=== PATIENT | male | born 1945 | race Caucasian/White ===

== ENCOUNTER 2021-08-07 17:19 | Inpatient (IN) ==
[~2021-08-07 17:19] MED LIST: *HR* Etomidate 40 MG/20 ML VIAL IVP ONE; *HR* Rocuronium Bromide 50 MG/5 ML VIAL IVP ONE
[2021-08-07] MEDS ORDERED: Aspirin 325 MG TABLET PO ONE (17:36)
[2021-08-07] MEDS ORDERED: 0.9 % Sodium Chloride 1,000 ML IVC ONE (17:36)
[2021-08-07 18:30] LABS: Basophils # 0.1 K/mcL (0.0-0.2); Basophils % 0.6 %; Hematocrit 34.6 % (37.5-50.1); Hemoglobin 11.2 g/dL (12.9-16.9); Immature Granulocytes % 3.1 % (0-4); Lymphocytes # 0.4 K/mcL (0.6-4.6); Mean Corpuscular HGB Conc 32.4 g/dL (31.6-35.5); Mean Corpuscular Hemoglobin 30.6 pg (28.0-33.3); Mean Corpuscular Volume 94.5 fL (83.0-100.0); Mean Platelet Volume 11.3 fL (9.4-12.4); Monocytes # 0.9 K/mcL (0.0-1.3); Monocytes % 6.5 %; Neutrophils # 12.1 K/mcL (1.6-8.9); Nucleated Red Blood Cells 0.4 /100 WBC (0); Platelet Count 222 K/mcL (140-400); Red Blood Count 3.66 M/mcL (4.19-5.50); Red Cell Distribution Width 15.3 % (11.5-14.5); Segmented Neutrophils % 86.8 %
[2021-08-07] MEDS ORDERED: cefTRIAXone 1,000 MG in 0.9 % Sodium Chloride Mini Bag 100 ML IVPB ONE (18:36)
[2021-08-07 18:38] LABS: INR 1.3; Prothrombin Time 14.2 Seconds (9.4-12.1)
[2021-08-07 18:40] LABS: Activated Partial Thrombo Time 24.7 Seconds (26.0-36.0)
[2021-08-07 18:53] LABS: BUN/Creatinine Ratio 35 (6-26); Blood Urea Nitrogen 45 mg/dL (8-23); Calcium 8.6 mg/dL (8.6-10.3); Carbon Dioxide 30 mEq/L (23-29); Chloride 97 mEq/L (98-107); Glucose 315 mg/dL (70-105); Osmolality,Calculated 304 (280-300); Potassium 4.9 mEq/L (3.5-5.1); Sodium 135 mEq/L (136-145); eGFR For African Americans > 60 (> 60); eGFR For Non-African Americans 54 (> 60)
[2021-08-07 19:03] LABS: Troponin I 0.06 ng/mL (< 0.04)
[2021-08-07 19:07] LABS: Thyroid Stimulating Hormone 0.957 mcIU/mL (0.340-5.600)
[2021-08-07] MEDS ORDERED: DilTIAZem 50 MG/50 ML IV.SOLN IVC SCH (19:30)
[2021-08-07] MEDS ORDERED: Isovue-370 500 ML BOTTLE IVP ONE (19:35)
[2021-08-07 19:47] LABS: Adenovirus Not Detected (Not Detect); Coronavirus 229E Not Detected (Not Detect); Coronavirus HKU1 Not Detected (Not Detect); Coronavirus NL63 Not Detected (Not Detect); Coronavirus OC43 Not Detected (Not Detect); Human Metapneumovirus Not Detected (Not Detect); Human Rhinovirus/Enterovirus Not Detected (Not Detect); Influenza A Subtype 2009 H1 Not Detected (Not Detect); SARS-CoV-2 Not Detected (Not Detect)
[2021-08-07 19:48] LABS: Bordetella Pertussis Not Detected (Not Detect); Chlamydophila pneumoniae Not Detected (Not Detect); Influenza B Not Detected (Not Detect); Mycoplasma pneumoniae Not Detected (Not Detect); Parainfluenza Virus 1 Not Detected (Not Detect); Parainfluenza Virus 2 Not Detected (Not Detect); Parainfluenza Virus 3 Not Detected (Not Detect); Parainfluenza Virus 4 Not Detected (Not Detect); Respiratory Syncytial Virus Not Detected (Not Detect)
[2021-08-07 21:12] LABS: Bilirubin,Urine Negative (Negative); Blood,Urine Negative (Negative); Clarity,Urine Clear (Clear); Color,Urine Yellow (Yellow); Glucose,Urine (UA) 50 mg/dL (Normal); Hyaline Casts,Urine Few per lpf (None Seen); Ketones,Urine Trace mg/dL (Negative); Leukocyte Esterase,Urine Negative (Negative); Mucus,Urine Few per lpf (None-Few); Nitrite,Urine Negative (Negative); Protein,Urine 30 mg/dL (Neg-Trace); RBC,Urine 0-3 per hpf (0-3); Specific Gravity,Urine > 1.030 (1.010-1.025); Squamous Epithelial Cell,Urine Few per hpf (None-Few)
[2021-08-07] MEDS ORDERED: *HR* Heparin 5,000 UNIT/ML VIAL IVP ONE (21:50)
[2021-08-07] MEDS ORDERED: *HR* Heparin 5,000 UNIT/ML VIAL IVP PRN ×2 (21:50)
[2021-08-07] MEDS ORDERED: Azithromycin 500 MG in 0.9 % Sodium Chloride 250 ML IVPB ONE (21:54)
[2021-08-07] MEDS: Heparin 25,000UNIT/250ML 1/2NS 25,000 UNIT/250 ML IV.SOLN IVC SCH (22:00)
[2021-08-07] MEDS ORDERED: *HR* Metoprolol 5 MG/5 ML VIAL IVP ONE (22:09)
[2021-08-07 23:17] LABS: Hematocrit 32.9 % (37.5-50.1); Hemoglobin 10.7 g/dL (12.9-16.9); Mean Corpuscular HGB Conc 32.5 g/dL (31.6-35.5); Mean Corpuscular Hemoglobin 31.4 pg (28.0-33.3); Mean Corpuscular Volume 96.5 fL (83.0-100.0); Mean Platelet Volume 11.8 fL (9.4-12.4); Platelet Count 211 K/mcL (140-400); Red Blood Count 3.41 M/mcL (4.19-5.50); Red Cell Distribution Width 15.4 % (11.5-14.5); White Blood Count 12.5 K/mcL (4.3-11.1)
[2021-08-07] MEDS ORDERED: *HR* LORazepam 2 MG/ML VIAL ONE (23:17)
[2021-08-07 23:26] LABS: Heparin anti-factor XA UFH < 0.04 IU/mL (0.30-0.70)
[2021-08-07 23:27] LABS: INR 1.2; Prothrombin Time 13.6 Seconds (9.4-12.1)
[2021-08-07] MEDS ORDERED: 0.9 % Sodium Chloride 1,000 ML ONE (23:53)
[2021-08-08] MEDS: FentaNYL (PF) 1,000 MCG/100 ML IV.SOLN IVC SCH ×2 (00:05→17:26)
[2021-08-08] MEDS ORDERED: Naloxone 0.4 MG/ML INJ IVP PRN (00:05)
[2021-08-08] MEDS ORDERED: Amiodarone Premix 150 MG/100 ML BAG IVPB ONE (00:05)
[2021-08-08] MEDS ORDERED: 0.9 % Sodium Chloride 1,000 ML IVC ONE (00:06)
[2021-08-08] MEDS ORDERED: Dexamethasone Sodium Phos/PF 10 MG/ML VIAL IVP ONE (00:15)
[2021-08-08] MEDS ORDERED: Amiodarone Premix 360 MG/200 ML BAG IVC ONE (00:15)
[2021-08-08] MEDS ORDERED: Racepinephrine Neb 0.5 ML VIAL IH ONE (00:20)
[2021-08-08] MEDS ORDERED: Ondansetron ODT 4 MG TAB.RAPDIS SL PRN (00:21)
[2021-08-08 01:02] LABS: ABG Base Excess -4 mEq/L (-2 to 3); ABG HCO3 22 mEq/L (21-27); ABG Oxygen Saturation 94 % (95-98); ABG PCO2 43 mmHg (35-45); ABG PH 7.33 pH Units (7.32-7.45); ABG PO2 76 mmHg (85-104); ABG TCO2 24 mEq/L (20-26); Blood Gas VT 500 cc
[2021-08-08] MEDS ORDERED: Artificial Tears SOLN 15 ML BOTTLE BOTH EYES PRN (01:23)
[2021-08-08] MEDS ORDERED: D5% in Water 1,000 ML IVC PRN (01:25)
[2021-08-08] MEDS ORDERED: *HR* Dextrose 50 % in Water (Syg) 50 ML SYRINGE IVP PRN (01:25)
[2021-08-08] MEDS ORDERED: Dextrose 4 GM Chewable Tablets PO PRN ×2 (01:25)
[2021-08-08] MEDS ORDERED: Benzonatate 100 MG CAPSULE PO PRN (02:49)
[2021-08-08] MEDS ORDERED: Perflutren Lipid Microsphere 1.3 ML in 0.9 % Sodium Chloride 8.7 ML IVP PRN (02:49)
[2021-08-08] MEDS ORDERED: Vancomycin 1,250 MG/262.5 ML IV.SOLN IVPB ONE (03:00)
[2021-08-08 03:32] LABS: Bacteria,Urine Few per hpf (None-Few); Bilirubin,Urine Negative (Negative); Blood,Urine Negative (Negative); Clarity,Urine Clear (Clear); Color,Urine Yellow (Yellow); Glucose,Urine (UA) Normal (Normal); Hyaline Casts,Urine Few per lpf (None Seen); Ketones,Urine Negative (Negative); Leukocyte Esterase,Urine Negative (Negative); Mucus,Urine Few per lpf (None-Few); Nitrite,Urine Negative (Negative); Protein,Urine 100 mg/dL (Neg-Trace); Specific Gravity,Urine > 1.030 (1.010-1.025); Squamous Epithelial Cell,Urine Few per hpf (None-Few); Urobilinogen,Urine >=8.0 mg/dL (Normal)
[2021-08-08] MEDS: Ringers Solution, Lactated 1,000 ML IVC SCH ×3 (03:51→12:54)
[2021-08-08] MEDS: Ipratropium/Albuterol Neb 3 ML IH SCH ×6 (03:52→23:54)
[2021-08-08 04:24] LABS: ABG Base Excess 0 mEq/L (-2 to 3); ABG HCO3 26 mEq/L (21-27); ABG Oxygen Saturation 95 % (95-98); ABG PCO2 46 mmHg (35-45); ABG PH 7.36 pH Units (7.32-7.45); ABG PO2 79 mmHg (85-104); ABG TCO2 27 mEq/L (20-26); Blood Gas VT 500 cc
[2021-08-08] MEDS: Artificial Tears SOLN 15 ML BOTTLE BOTH EYES SCH ×6 (04:27→23:53)
[2021-08-08 04:47] LABS: Amphetamine Screen,Urine Negative ng/mL (Cutoff=1000); Barbiturate Screen,Urine Negative ng/mL (Cutoff=200); Benzodiazepines Screen,Urine Negative ng/mL (Cutoff=200); Cannabinoid Screen,Urine Negative ng/mL (Cutoff = 50); Cocaine Screen,Urine Negative ng/mL (Cutoff= 300); Opiate Screen,Urine Negative ng/mL (Cutoff=300); Phencyclidine Screen,Urine Negative ng/mL (Cutoff=25)
[2021-08-08 05:05] LABS: Basophils % 0.2 %; Hematocrit 36.4 % (37.5-50.1); Hemoglobin 11.6 g/dL (12.9-16.9); Lymphocytes # 0.4 K/mcL (0.6-4.6); Mean Corpuscular HGB Conc 31.9 g/dL (31.6-35.5); Mean Corpuscular Hemoglobin 30.8 pg (28.0-33.3); Mean Corpuscular Volume 96.6 fL (83.0-100.0); Mean Platelet Volume 11.3 fL (9.4-12.4); Monocytes # 1.3 K/mcL (0.0-1.3); Monocytes % 6.6 %; Neutrophils # 16.6 K/mcL (1.6-8.9); Nucleated Red Blood Cells 0.8 /100 WBC (0); Platelet Count 190 K/mcL (140-400); Red Blood Count 3.77 M/mcL (4.19-5.50); Red Cell Distribution Width 15.7 % (11.5-14.5); Segmented Neutrophils % 84.2 %
[2021-08-08 05:08] LABS: White Blood Count 19.7 K/mcL (4.3-11.1)
[2021-08-08 05:15] LABS: INR 1.4; Prothrombin Time 15.6 Seconds (9.4-12.1)
[2021-08-08 05:17] LABS: Activated Partial Thrombo Time 25.3 Seconds (26.0-36.0)
[2021-08-08 05:23] LABS: Acetaminophen < 10 mcg/mL (10-20); Anisocytosis 1+ (Not Present); Ethanol < 10 mg/dL (Less than 10); Macrocytosis Present (Not Present); Salicylate < 2.5 mg/dL (15.0-30.0)
[2021-08-08 05:24] LABS: Platelet Estimate Normal (Normal); Polychromasia 1+ (Not Present)
[2021-08-08 05:27] LABS: Troponin I 0.06 ng/mL (< 0.04)
[2021-08-08 05:41] LABS: Albumin/Globulin Ratio 1.3 (1.1-2.2); Bilirubin,Total 1.2 mg/dL (0.3-1.0); Calcium 8.3 mg/dL (8.6-10.3); Globulin 2.3 g/dL (2.4-3.5); Magnesium 2.5 mg/dL (1.6-2.6); Phosphorous 6.4 mg/dL (2.7-4.5); Potassium 5.1 mEq/L (3.5-5.1); Total Protein 5.3 g/dL (6.4-8.9)
[2021-08-08 05:42] LABS: Prolactin 35.16 ng/mL (3.00-14.70)
[2021-08-08 05:50] LABS: Folate > 22.3 ng/mL (3.0-16.0); Vitamin B12 903 pg/mL (250-1100)
[2021-08-08 06:16] LABS: Estimated Average Glucose 180 mg/dl; Hemoglobin A1C 7.9 %
[2021-08-08] MEDS: Amiodarone Premix 360 MG/200 ML BAG IVC SCH ×2 (06:50→18:42)
[2021-08-08] MEDS: Insulin LISPRO 300 UNITS/3 ML VIAL SUBQ SCH ×4 (07:02→23:54)
[2021-08-08] MEDS: MethylPREDNISolone 40 MG/ML VIAL IVP SCH ×3 (07:51→23:52)
[2021-08-08] MEDS: Chlorhexidine Rinse 15 ML MOUTHWASH MM SCH ×2 (07:51→20:12)
[2021-08-08] MEDS: Pantoprazole 40 MG VIAL IVP SCH (07:51)
[2021-08-08] MEDS: Cefepime HCl 2,000 MG in 0.9 % Sodium Chloride Mini Bag 100 ML IVPB SCH ×2 (07:51→20:14)
[2021-08-08] MEDS: Divalproex Sodium 125 MG Sprinkle Capsule (DR) GTUBE SCH ×3 (07:51→20:09)
[2021-08-08] MEDS ORDERED: Piperacillin/Tazobactam 3.375 GM in 0.9 % Sodium Chloride Mini Bag 100 ML IVPB SCH (08:00)
[2021-08-08] MEDS: Budesonide/Formoterol 160/4.5 1 PUFF INH IH SCH ×2 (08:12→20:01)
[2021-08-08] MEDS ORDERED: predniSONE 10 MG TABLET GTUBE SCH (09:00)
[2021-08-08] MEDS ORDERED: *HR* EPINEPHrine 1 MG/10 ML SYRINGE IVP ONE (11:23)
[2021-08-08] MEDS ORDERED: *HR* Amiodarone 450 MG/9 ML VIAL IVC ONE (11:23)
[2021-08-08] MEDS: Aspirin 81 MG TAB.CHEW PO SCH (17:30)
[2021-08-08] MEDS: Heparin 25,000UNIT/250ML 1/2NS 25,000 UNIT/250 ML IV.SOLN IVC SCH (19:38)
[2021-08-09] MEDS: Ipratropium/Albuterol Neb 3 ML IH SCH ×5 (03:49→20:33)
[2021-08-09] MEDS ORDERED: Vancomycin 1,250 MG/262.5 ML IV.SOLN IVPB SCH (04:00)
[2021-08-09 04:15] LABS: ABG Base Excess 4 mEq/L (-2 to 3); ABG HCO3 27 mEq/L (21-27); ABG Oxygen Saturation 97 % (95-98); ABG PCO2 37 mmHg (35-45); ABG PH 7.48 pH Units (7.32-7.45); ABG PO2 83 mmHg (85-104); ABG TCO2 28 mEq/L (20-26); Blood Gas VT 500 cc
[2021-08-09] MEDS: Artificial Tears SOLN 15 ML BOTTLE BOTH EYES SCH ×3 (04:30→12:02)
[2021-08-09 05:45] LABS: Basophils % 0.1 %; Hematocrit 35.3 % (37.5-50.1); Hemoglobin 11.5 g/dL (12.9-16.9); Immature Granulocytes % 5.6 % (0-4); Lymphocytes # 0.8 K/mcL (0.6-4.6); Lymphocytes % 4.5 %; Mean Corpuscular HGB Conc 32.6 g/dL (31.6-35.5); Mean Corpuscular Hemoglobin 30.7 pg (28.0-33.3); Mean Corpuscular Volume 94.1 fL (83.0-100.0); Mean Platelet Volume 11.1 fL (9.4-12.4); Monocytes # 0.6 K/mcL (0.0-1.3); Monocytes % 3.5 %; Neutrophils # 14.9 K/mcL (1.6-8.9); Nucleated Red Blood Cells 0.4 /100 WBC (0); Platelet Count 164 K/mcL (140-400); Red Blood Count 3.75 M/mcL (4.19-5.50); Red Cell Distribution Width 16.2 % (11.5-14.5); Segmented Neutrophils % 86.3 %; White Blood Count 17.3 K/mcL (4.3-11.1)
[2021-08-09 05:48] LABS: Anisocytosis 1+ (Not Present); Platelet Estimate Normal (Normal)
[2021-08-09] MEDS: Insulin LISPRO 300 UNITS/3 ML VIAL SUBQ SCH ×3 (06:05→17:05)
[2021-08-09 06:14] LABS: Alanine Aminotransferase 783 Units/L (7-52); Albumin 3.1 g/dL (3.5-5.7); Albumin/Globulin Ratio 1.3 (1.1-2.2); Alkaline Phosphatase 99 Units/L (34-104); Aspartate Amino Transferase 250 Units/L (13-39); BUN/Creatinine Ratio 36 (6-26); Bilirubin,Total 0.7 mg/dL (0.3-1.0); Blood Urea Nitrogen 48 mg/dL (8-23); Calcium 8.3 mg/dL (8.6-10.3); Carbon Dioxide 28 mEq/L (23-29); Chloride 100 mEq/L (98-107); Globulin 2.4 g/dL (2.4-3.5); Glucose 251 mg/dL (70-105); Osmolality,Calculated 307 (280-300); Sodium 138 mEq/L (136-145); Total Protein 5.5 g/dL (6.4-8.9); eGFR For African Americans > 60 (> 60); eGFR For Non-African Americans 52 (> 60)
[2021-08-09] MEDS: Divalproex Sodium 125 MG Sprinkle Capsule (DR) GTUBE SCH (07:29)
[2021-08-09] MEDS: Aspirin 81 MG TAB.CHEW PO SCH (07:29)
[2021-08-09] MEDS: Pantoprazole 40 MG VIAL IVP SCH (07:32)
[2021-08-09] MEDS: Chlorhexidine Rinse 15 ML MOUTHWASH MM SCH (07:33)
[2021-08-09] MEDS: MethylPREDNISolone 40 MG/ML VIAL IVP SCH (07:33)
[2021-08-09] MEDS: Cefepime HCl 2,000 MG in 0.9 % Sodium Chloride Mini Bag 100 ML IVPB SCH (07:33)
[2021-08-09] MEDS: Budesonide/Formoterol 160/4.5 1 PUFF INH IH SCH ×2 (07:38→20:33)
[2021-08-09] MEDS: Amiodarone Premix 360 MG/200 ML BAG IVC SCH (07:47)
[2021-08-09] MEDS ORDERED: *HR* Amiodarone 200 MG TABLET PO SCH (11:30)
[2021-08-09] MEDS ORDERED: lamoTRIgine 100 MG TABLET PO SCH (11:30)
[2021-08-09] MEDS ORDERED: Furosemide 20 MG/2 ML VIAL IVP ONE (12:08)
[2021-08-09] MEDS ORDERED: Ipratropium/Albuterol Neb 3 ML IH ONE (12:10)
[2021-08-09] MEDS ORDERED: Ipratropium/Albuterol Neb 3 ML ONE (12:12)
[2021-08-09] MEDS ORDERED: Apixaban 5 MG TABLET PO SCH (12:15)
[2021-08-09] MEDS ORDERED: lisinopriL 5 MG TABLET PO SCH (12:30)
[2021-08-09] MEDS ORDERED: Ondansetron ODT 4 MG TAB.RAPDIS SL PRN (13:24)
[2021-08-09] MEDS ORDERED: Benzonatate 100 MG CAPSULE PO PRN (13:24)
[2021-08-09] MEDS ORDERED: D5% in Water 1,000 ML IVC PRN (13:24)
[2021-08-09] MEDS ORDERED: Dextrose 4 GM Chewable Tablets PO PRN ×2 (13:24)
[2021-08-09] MEDS ORDERED: Naloxone 0.4 MG/ML INJ IVP PRN (13:24)
[2021-08-09] MEDS ORDERED: *HR* Dextrose 50 % in Water (Syg) 50 ML SYRINGE IVP PRN (13:24)
[2021-08-09] MEDS ORDERED: Divalproex Sodium 125 MG Sprinkle Capsule (DR) PO SCH (15:00)
[2021-08-09] MEDS: Divalproex Sodium 125 MG Sprinkle Capsule (DR) PO SCH ×2 (15:01→21:27)
[2021-08-09] MEDS ORDERED: carvediloL 6.25 MG TABLET PO SCH (17:00)
[2021-08-09] MEDS: carvediloL 6.25 MG TABLET PO SCH (17:07)
[2021-08-09] MEDS ORDERED: predniSONE 20 MG TABLET PO SCH (20:00)
[2021-08-09 20:59] LABS: ABG Base Excess 5 mEq/L (-2 to 3); ABG HCO3 30 mEq/L (21-27); ABG Oxygen Saturation 97 % (95-98); ABG PCO2 43 mmHg (35-45); ABG PH 7.45 pH Units (7.32-7.45); ABG PO2 84 mmHg (85-104); ABG TCO2 31 mEq/L (20-26)
[2021-08-09] MEDS: *HR* Amiodarone 200 MG TABLET PO SCH (21:27)
[2021-08-09] MEDS: lamoTRIgine 100 MG TABLET PO SCH (21:28)
[2021-08-09] MEDS: Apixaban 5 MG TABLET PO SCH (21:28)
[2021-08-09] MEDS: Cefepime HCl 2,000 MG in 0.9 % Sodium Chloride 20 ML IVP SCH (21:31)
[2021-08-09] MEDS: predniSONE 20 MG TABLET PO SCH (21:31)
[2021-08-10] MEDS: Ipratropium/Albuterol Neb 3 ML IH SCH ×6 (00:08→20:31)
[2021-08-10] MEDS: Insulin LISPRO 300 UNITS/3 ML VIAL SUBQ SCH ×4 (01:06→17:47)
[2021-08-10 03:41] LABS: Chol/HDL Ratio 3.1 (0-4.9)
[2021-08-10] MEDS: Budesonide/Formoterol 160/4.5 1 PUFF INH IH SCH ×2 (08:04→20:31)
[2021-08-10] MEDS: Cefepime HCl 2,000 MG in 0.9 % Sodium Chloride 20 ML IVP SCH ×2 (08:46→17:46)
[2021-08-10] MEDS: Divalproex Sodium 125 MG Sprinkle Capsule (DR) PO SCH ×3 (08:47→22:16)
[2021-08-10] MEDS: lamoTRIgine 100 MG TABLET PO SCH ×2 (08:47→22:16)
[2021-08-10] MEDS: Aspirin 81 MG TAB.CHEW PO SCH (08:47)
[2021-08-10] MEDS: *HR* Amiodarone 200 MG TABLET PO SCH ×2 (08:47→22:17)
[2021-08-10] MEDS: predniSONE 20 MG TABLET PO SCH (08:47)
[2021-08-10] MEDS: Apixaban 5 MG TABLET PO SCH ×2 (08:47→22:16)
[2021-08-10] MEDS: carvediloL 6.25 MG TABLET PO SCH ×2 (08:48→15:28)
[2021-08-10] MEDS ORDERED: lisinopriL 5 MG TABLET PO SCH (09:00)
[2021-08-10 09:07] LABS: Basophils # 0.1 K/mcL (0.0-0.2); Basophils % 0.7 %; Hematocrit 36.3 % (37.5-50.1); Hemoglobin 11.8 g/dL (12.9-16.9); Immature Granulocytes % 3.7 % (0-4); Lymphocytes # 0.4 K/mcL (0.6-4.6); Lymphocytes % 2.3 %; Mean Corpuscular HGB Conc 32.5 g/dL (31.6-35.5); Mean Corpuscular Hemoglobin 30.9 pg (28.0-33.3); Mean Platelet Volume 10.7 fL (9.4-12.4); Monocytes % 5.5 %; Neutrophils # 15.6 K/mcL (1.6-8.9); Nucleated Red Blood Cells 0.2 /100 WBC (0); Platelet Count 179 K/mcL (140-400); Red Blood Count 3.82 M/mcL (4.19-5.50); Red Cell Distribution Width 16.4 % (11.5-14.5); Segmented Neutrophils % 87.8 %; White Blood Count 17.8 K/mcL (4.3-11.1)
[2021-08-10 09:26] LABS: BUN/Creatinine Ratio 39 (6-26); Blood Urea Nitrogen 42 mg/dL (8-23); Calcium 7.8 mg/dL (8.6-10.3); Carbon Dioxide 27 mEq/L (23-29); Chloride 101 mEq/L (98-107); Glucose 142 mg/dL (70-105); Osmolality,Calculated 297 (280-300); Potassium 4.3 mEq/L (3.5-5.1); Sodium 137 mEq/L (136-145); eGFR For African Americans > 60 (> 60); eGFR For Non-African Americans > 60 (> 60)
[2021-08-10] MEDS ORDERED: MOM Conc 10 ML UD.LIQ PO PRN (13:06)
[2021-08-10] MEDS ORDERED: QUEtiapine Fumarate 25 MG TABLET PO SCH (15:00)
[2021-08-10] MEDS: QUEtiapine Fumarate 25 MG TABLET PO SCH ×2 (15:27→22:16)
[2021-08-11] MEDS: Ipratropium/Albuterol Neb 3 ML IH SCH ×7 (00:02→22:49)
[2021-08-11] MEDS: Insulin LISPRO 300 UNITS/3 ML VIAL SUBQ SCH ×5 (01:29→23:34)
[2021-08-11] MEDS: Cefepime HCl 2,000 MG in 0.9 % Sodium Chloride 20 ML IVP SCH ×3 (01:51→16:16)
[2021-08-11 02:52] LABS: Basophils # 0.1 K/mcL (0.0-0.2); Basophils % 0.6 %; Hemoglobin 10.7 g/dL (12.9-16.9); Immature Granulocytes % 2.4 % (0-4); Lymphocytes # 0.3 K/mcL (0.6-4.6); Lymphocytes % 1.9 %; Mean Corpuscular HGB Conc 32.4 g/dL (31.6-35.5); Mean Corpuscular Volume 95.7 fL (83.0-100.0); Mean Platelet Volume 10.8 fL (9.4-12.4); Monocytes # 0.8 K/mcL (0.0-1.3); Monocytes % 5.9 %; Nucleated Red Blood Cells 0.1 /100 WBC (0); Platelet Count 149 K/mcL (140-400); Red Blood Count 3.45 M/mcL (4.19-5.50); Red Cell Distribution Width 16.3 % (11.5-14.5); Segmented Neutrophils % 89.2 %; White Blood Count 13.5 K/mcL (4.3-11.1)
[2021-08-11 03:16] LABS: Alanine Aminotransferase 345 Units/L (7-52); Albumin 2.7 g/dL (3.5-5.7); Albumin/Globulin Ratio 1.1 (1.1-2.2); Alkaline Phosphatase 70 Units/L (34-104); Aspartate Amino Transferase 47 Units/L (13-39); BUN/Creatinine Ratio 39 (6-26); Bilirubin,Direct 0.1 mg/dL (0.0-0.2); Bilirubin,Indirect 0.5 mg/dL (0.0-1.0); Bilirubin,Total 0.6 mg/dL (0.3-1.0); Blood Urea Nitrogen 40 mg/dL (8-23); Calcium 7.6 mg/dL (8.6-10.3); Carbon Dioxide 26 mEq/L (23-29); Chloride 103 mEq/L (98-107); Globulin 2.4 g/dL (2.4-3.5); Glucose 217 mg/dL (70-105); Osmolality,Calculated 300 (280-300); Potassium 4.8 mEq/L (3.5-5.1); Sodium 137 mEq/L (136-145); Total Protein 5.1 g/dL (6.4-8.9); eGFR For African Americans > 60 (> 60); eGFR For Non-African Americans > 60 (> 60)
[2021-08-11] MEDS: Budesonide/Formoterol 160/4.5 1 PUFF INH IH SCH ×2 (07:27→20:12)
[2021-08-11] MEDS ORDERED: Spironolactone 25 MG TABLET PO SCH (09:00)
[2021-08-11] MEDS ORDERED: Sacubitril/Valsartan 24/26 MG 1 TABLET PO SCH (09:00)
[2021-08-11] MEDS ORDERED: Valsartan 80 MG TABLET PO SCH (09:00)
[2021-08-11] MEDS: Thiamine (B-1) 100 MG TABLET PO SCH (09:15)
[2021-08-11] MEDS: Finasteride 5 MG TABLET PO SCH (09:15)
[2021-08-11] MEDS: Aspirin 81 MG TAB.CHEW PO SCH (09:15)
[2021-08-11] MEDS: predniSONE 20 MG TABLET PO SCH (09:15)
[2021-08-11] MEDS: Spironolactone 12.5 MG TABLET PO SCH (09:15)
[2021-08-11] MEDS: Apixaban 5 MG TABLET PO SCH ×2 (09:16→20:44)
[2021-08-11] MEDS: lamoTRIgine 100 MG TABLET PO SCH ×2 (09:16→20:44)
[2021-08-11] MEDS: carvediloL 6.25 MG TABLET PO SCH ×2 (09:16→16:16)
[2021-08-11] MEDS: *HR* Amiodarone 200 MG TABLET PO SCH ×2 (09:16→20:44)
[2021-08-11] MEDS: Divalproex Sodium 125 MG Sprinkle Capsule (DR) PO SCH ×3 (09:16→20:44)
[2021-08-11] MEDS: QUEtiapine Fumarate 25 MG TABLET PO SCH ×3 (09:19→20:44)
[2021-08-11] MEDS: Nicotine 14 MG PATCH.TD24 TD SCH (09:19)
[2021-08-11 09:46] LABS: Mycoplasma pneumoniae IgG 0.92 U/L (<=0.09)
[2021-08-11] MEDS ORDERED: Valproic Acid INJ 1,000 MG in 0.9 % Sodium Chloride 100 ML IVPB ONE (17:00)
[2021-08-12] MEDS: Cefepime HCl 2,000 MG in 0.9 % Sodium Chloride 20 ML IVP SCH ×3 (00:51→16:57)
[2021-08-12 03:03] LABS: Basophils # 0.2 K/mcL (0.0-0.2); Basophils % 0.9 %; Eosinophils % 0.1 %; Hematocrit 40.8 % (37.5-50.1); Immature Granulocytes % 3.4 % (0-4); Lymphocytes # 0.6 K/mcL (0.6-4.6); Lymphocytes % 3.3 %; Mean Corpuscular HGB Conc 31.4 g/dL (31.6-35.5); Mean Corpuscular Hemoglobin 31.4 pg (28.0-33.3); Mean Platelet Volume 10.9 fL (9.4-12.4); Monocytes # 1.4 K/mcL (0.0-1.3); Monocytes % 8.3 %; Neutrophils # 14.1 K/mcL (1.6-8.9); Nucleated Red Blood Cells 0.1 /100 WBC (0); Platelet Count 164 K/mcL (140-400); Red Blood Count 4.08 M/mcL (4.19-5.50); Red Cell Distribution Width 16.3 % (11.5-14.5); White Blood Count 16.8 K/mcL (4.3-11.1)
[2021-08-12 03:05] LABS: Hemoglobin 12.8 g/dL (12.9-16.9)
[2021-08-12 03:38] LABS: Alanine Aminotransferase 300 Units/L (7-52); Albumin 2.8 g/dL (3.5-5.7); Alkaline Phosphatase 71 Units/L (34-104); Aspartate Amino Transferase 68 Units/L (13-39); BUN/Creatinine Ratio 38 (6-26); Bilirubin,Direct 0.1 mg/dL (0.0-0.2); Bilirubin,Indirect 0.5 mg/dL (0.0-1.0); Bilirubin,Total 0.6 mg/dL (0.3-1.0); Blood Urea Nitrogen 36 mg/dL (8-23); Calcium 8.1 mg/dL (8.6-10.3); Carbon Dioxide 24 mEq/L (23-29); Chloride 100 mEq/L (98-107); Globulin 2.7 g/dL (2.4-3.5); Glucose 129 mg/dL (70-105); Osmolality,Calculated 286 (280-300); Potassium 6.2 mEq/L (3.5-5.1); Sodium 133 mEq/L (136-145); Total Protein 5.5 g/dL (6.4-8.9); eGFR For African Americans > 60 (> 60); eGFR For Non-African Americans > 60 (> 60)
[2021-08-12] MEDS: Ipratropium/Albuterol Neb 3 ML IH SCH ×5 (03:47→20:04)
[2021-08-12] MEDS: Insulin LISPRO 300 UNITS/3 ML VIAL SUBQ SCH ×3 (05:52→17:06)
[2021-08-12] MEDS: Budesonide/Formoterol 160/4.5 1 PUFF INH IH SCH ×2 (07:29→20:03)
[2021-08-12] MEDS ORDERED: Calcium Gluconate 1gm/50mL 1 GM/50 ML BAG IVPB ONE (07:50)
[2021-08-12] MEDS ORDERED: Insulin Human Regular 10 UNIT in 0.9 % Sodium Chloride 10 ML IV ONE (07:52)
[2021-08-12] MEDS ORDERED: *HR* Dextrose 50 % in Water (Vial) 50 ML VIAL IVP ONE (07:52)
[2021-08-12] MEDS ORDERED: Albuterol 2.5 MG/3 ML NEBULIZER IH ONE (07:54)
[2021-08-12] MEDS: Divalproex Sodium 125 MG Sprinkle Capsule (DR) PO SCH ×3 (10:39→20:01)
[2021-08-12] MEDS: Thiamine (B-1) 100 MG TABLET PO SCH (10:39)
[2021-08-12] MEDS: Finasteride 5 MG TABLET PO SCH (10:40)
[2021-08-12] MEDS: Spironolactone 12.5 MG TABLET PO SCH (10:40)
[2021-08-12] MEDS: lamoTRIgine 100 MG TABLET PO SCH ×2 (10:40→20:00)
[2021-08-12] MEDS: predniSONE 20 MG TABLET PO SCH (10:40)
[2021-08-12] MEDS: Apixaban 5 MG TABLET PO SCH ×2 (10:40→20:01)
[2021-08-12] MEDS: *HR* Amiodarone 200 MG TABLET PO SCH ×2 (10:41→20:01)
[2021-08-12] MEDS: QUEtiapine Fumarate 25 MG TABLET PO SCH ×3 (10:41→20:00)
[2021-08-12] MEDS: Aspirin 81 MG TAB.CHEW PO SCH (10:42)
[2021-08-12] MEDS: SODIUM ZIRCONIUM CYCLOSILICATE 5 GM POWD.PACK PO SCH (10:42)
[2021-08-12] MEDS: Nicotine 14 MG PATCH.TD24 TD SCH (10:43)
[2021-08-12] MEDS: carvediloL 6.25 MG TABLET PO SCH ×2 (11:09→16:56)
[2021-08-12 13:13] LABS: BUN/Creatinine Ratio 36 (6-26); Blood Urea Nitrogen 37 mg/dL (8-23); Calcium 8.6 mg/dL (8.6-10.3); Carbon Dioxide 30 mEq/L (23-29); Chloride 100 mEq/L (98-107); Glucose 155 mg/dL (70-105); Osmolality,Calculated 296 (280-300); Potassium 4.9 mEq/L (3.5-5.1); Sodium 137 mEq/L (136-145); eGFR For African Americans > 60 (> 60); eGFR For Non-African Americans > 60 (> 60)
[2021-08-13] MEDS: Ipratropium/Albuterol Neb 3 ML IH SCH ×6 (00:14→20:01)
[2021-08-13] MEDS: Cefepime HCl 2,000 MG in 0.9 % Sodium Chloride 20 ML IVP SCH ×3 (02:02→17:02)
[2021-08-13 03:01] LABS: Basophils # 0.1 K/mcL (0.0-0.2); Basophils % 0.7 %; Eosinophils % 0.2 %; Hematocrit 39.6 % (37.5-50.1); Hemoglobin 12.6 g/dL (12.9-16.9); Immature Granulocytes % 2.5 % (0-4); Lymphocytes # 0.9 K/mcL (0.6-4.6); Lymphocytes % 5.4 %; Mean Corpuscular HGB Conc 31.8 g/dL (31.6-35.5); Mean Corpuscular Hemoglobin 30.4 pg (28.0-33.3); Mean Corpuscular Volume 95.4 fL (83.0-100.0); Mean Platelet Volume 10.6 fL (9.4-12.4); Monocytes # 1.3 K/mcL (0.0-1.3); Monocytes % 8.2 %; Neutrophils # 13.1 K/mcL (1.6-8.9); Platelet Count 170 K/mcL (140-400); Red Blood Count 4.15 M/mcL (4.19-5.50); Red Cell Distribution Width 16.2 % (11.5-14.5); White Blood Count 15.8 K/mcL (4.3-11.1)
[2021-08-13 03:10] LABS: INR 1.1; Prothrombin Time 12.7 Seconds (9.4-12.1)
[2021-08-13 03:12] LABS: Activated Partial Thrombo Time 24.4 Seconds (26.0-36.0)
[2021-08-13 03:19] LABS: Albumin 3.1 g/dL (3.5-5.7); Albumin/Globulin Ratio 1.2 (1.1-2.2); Bilirubin,Direct 0.1 mg/dL (0.0-0.2); Bilirubin,Indirect 0.6 mg/dL (0.0-1.0); Bilirubin,Total 0.7 mg/dL (0.3-1.0); Globulin 2.6 g/dL (2.4-3.5); Total Protein 5.7 g/dL (6.4-8.9)
[2021-08-13 03:20] LABS: BUN/Creatinine Ratio 27 (6-26); Blood Urea Nitrogen 31 mg/dL (8-23); Calcium 8.7 mg/dL (8.6-10.3); Carbon Dioxide 35 mEq/L (23-29); Chloride 98 mEq/L (98-107); Glucose 146 mg/dL (70-105); Osmolality,Calculated 295 (280-300); Potassium 4.6 mEq/L (3.5-5.1); Sodium 138 mEq/L (136-145); eGFR For African Americans > 60 (> 60); eGFR For Non-African Americans > 60 (> 60)
[2021-08-13 05:36] LABS: Bilirubin,Urine Negative (Negative); Blood,Urine Moderate (Negative); Clarity,Urine Clear (Clear); Color,Urine Light-Yellow (Yellow); Glucose,Urine (UA) Normal (Normal); Ketones,Urine Negative (Negative); Leukocyte Esterase,Urine Negative (Negative); Mucus,Urine Few per lpf (None-Few); Nitrite,Urine Negative (Negative); Protein,Urine 30 mg/dL (Neg-Trace); RBC,Urine 50-100 per hpf (0-3); Specific Gravity,Urine 1.017 (1.010-1.025); Urobilinogen,Urine Normal (Normal)
[2021-08-13] MEDS: Insulin LISPRO 300 UNITS/3 ML VIAL SUBQ SCH ×3 (07:33→16:15)
[2021-08-13] MEDS: Budesonide/Formoterol 160/4.5 1 PUFF INH IH SCH ×2 (07:33→20:01)
[2021-08-13] MEDS: Apixaban 5 MG TABLET PO SCH (09:35)
[2021-08-13] MEDS: QUEtiapine Fumarate 25 MG TABLET PO SCH ×3 (09:35→20:01)
[2021-08-13] MEDS: Aspirin 81 MG TAB.CHEW PO SCH (09:36)
[2021-08-13] MEDS: carvediloL 6.25 MG TABLET PO SCH ×2 (09:36→17:02)
[2021-08-13] MEDS: *HR* Amiodarone 200 MG TABLET PO SCH ×2 (09:36→19:58)
[2021-08-13] MEDS: Valsartan 80 MG TABLET PO SCH (09:36)
[2021-08-13] MEDS: Thiamine (B-1) 100 MG TABLET PO SCH (09:36)
[2021-08-13] MEDS: lamoTRIgine 100 MG TABLET PO SCH ×2 (09:37→19:58)
[2021-08-13] MEDS: Finasteride 5 MG TABLET PO SCH (09:37)
[2021-08-13] MEDS: Divalproex Sodium 125 MG Sprinkle Capsule (DR) PO SCH ×3 (09:37→19:58)
[2021-08-13] MEDS: Nicotine 14 MG PATCH.TD24 TD SCH (09:38)
[2021-08-13] MEDS: SODIUM ZIRCONIUM CYCLOSILICATE 5 GM POWD.PACK PO SCH (09:40)
[2021-08-13] MEDS ORDERED: Saline Nasal Spray 44 ML BOTTLE NS PRN (10:13)
[2021-08-13] MEDS ORDERED: *HR* Heparin 5,000 UNIT/ML VIAL IVP PRN ×2 (14:58)
[2021-08-13] MEDS ORDERED: Heparin 25,000UNIT/250ML 1/2NS 25,000 UNIT/250 ML IV.SOLN IVC SCH ×3 (15:15→21:00)
[2021-08-13 16:22] LABS: Hematocrit 37.4 % (37.5-50.1); Hemoglobin 12.2 g/dL (12.9-16.9); Mean Corpuscular HGB Conc 32.6 g/dL (31.6-35.5); Mean Corpuscular Hemoglobin 30.9 pg (28.0-33.3); Mean Corpuscular Volume 94.7 fL (83.0-100.0); Mean Platelet Volume 10.6 fL (9.4-12.4); Platelet Count 166 K/mcL (140-400); Red Blood Count 3.95 M/mcL (4.19-5.50); Red Cell Distribution Width 15.9 % (11.5-14.5); White Blood Count 13.9 K/mcL (4.3-11.1)
[2021-08-13 16:31] LABS: Heparin anti-factor XA UFH 0.81 IU/mL (0.30-0.70); INR 1.3; Prothrombin Time 14.4 Seconds (9.4-12.1)
[2021-08-13] MEDS ORDERED: *HR* Heparin 5,000 UNIT/ML VIAL IVP ONE (21:00)
[2021-08-14] MEDS: Cefepime HCl 2,000 MG in 0.9 % Sodium Chloride 20 ML IVP SCH ×3 (00:15→16:19)
[2021-08-14] MEDS: Ipratropium/Albuterol Neb 3 ML IH SCH ×7 (00:19→23:37)
[2021-08-14 04:44] LABS: Basophils # 0.1 K/mcL (0.0-0.2); Basophils % 0.7 %; Hematocrit 34.3 % (37.5-50.1); Hemoglobin 11.3 g/dL (12.9-16.9); Immature Granulocytes % 2.7 % (0-4); Lymphocytes # 0.4 K/mcL (0.6-4.6); Mean Corpuscular HGB Conc 32.9 g/dL (31.6-35.5); Mean Corpuscular Hemoglobin 31.3 pg (28.0-33.3); Mean Platelet Volume 11.1 fL (9.4-12.4); Monocytes # 0.8 K/mcL (0.0-1.3); Monocytes % 5.6 %; Neutrophils # 11.9 K/mcL (1.6-8.9); Platelet Count 149 K/mcL (140-400); Red Blood Count 3.61 M/mcL (4.19-5.50); Red Cell Distribution Width 15.9 % (11.5-14.5); White Blood Count 13.5 K/mcL (4.3-11.1)
[2021-08-14 04:49] LABS: INR 1.8; Prothrombin Time 19.5 Seconds (9.4-12.1)
[2021-08-14 05:00] LABS: BUN/Creatinine Ratio 34 (6-26); Blood Urea Nitrogen 35 mg/dL (8-23); Calcium 8.7 mg/dL (8.6-10.3); Carbon Dioxide 34 mEq/L (23-29); Chloride 98 mEq/L (98-107); Glucose 211 mg/dL (70-105); Osmolality,Calculated 298 (280-300); Potassium 5.1 mEq/L (3.5-5.1); Sodium 137 mEq/L (136-145); eGFR For African Americans > 60 (> 60); eGFR For Non-African Americans > 60 (> 60)
[2021-08-14 05:09] LABS: Activated Partial Thrombo Time > 360.0 Seconds (26.0-36.0)
[2021-08-14] MEDS: Budesonide/Formoterol 160/4.5 1 PUFF INH IH SCH ×2 (07:21→19:43)
[2021-08-14] MEDS: Insulin LISPRO 300 UNITS/3 ML VIAL SUBQ SCH ×2 (09:44→14:59)
[2021-08-14] MEDS: Divalproex Sodium 125 MG Sprinkle Capsule (DR) PO SCH ×3 (09:44→23:01)
[2021-08-14] MEDS: Thiamine (B-1) 100 MG TABLET PO SCH (09:45)
[2021-08-14] MEDS: lamoTRIgine 100 MG TABLET PO SCH ×2 (09:45→23:01)
[2021-08-14] MEDS: Valsartan 80 MG TABLET PO SCH (09:48)
[2021-08-14] MEDS: Aspirin 81 MG TAB.CHEW PO SCH (09:50)
[2021-08-14] MEDS: *HR* Amiodarone 200 MG TABLET PO SCH ×2 (09:50→23:02)
[2021-08-14] MEDS: QUEtiapine Fumarate 25 MG TABLET PO SCH ×3 (09:50→23:00)
[2021-08-14] MEDS: Finasteride 5 MG TABLET PO SCH (09:50)
[2021-08-14] MEDS: Nicotine 14 MG PATCH.TD24 TD SCH (09:53)
[2021-08-14] MEDS: carvediloL 6.25 MG TABLET PO SCH ×2 (09:56→16:19)
[2021-08-14] MEDS ORDERED: Heparin 1,000 UNITS/500 mL 500 ML ONE (12:51)
[2021-08-14] MEDS ORDERED: ISOVUE-370 200 ML INFUS..BTL ONE (12:51)
[2021-08-14] MEDS ORDERED: 0.9 % Sodium Chloride 2,000 ML ONE (12:51)
[2021-08-14] MEDS ORDERED: *HR* Heparin 10,000 UNIT/10 ML VIAL ONE (12:51)
[2021-08-14] MEDS ORDERED: Nitroglycerin 1,000 MCG/5 ML VIAL IV ONE (12:51)
[2021-08-14] MEDS ORDERED: *HR* FentaNYL (PF) 100 MCG/2 ML VIAL ONE (12:57)
[2021-08-14] MEDS ORDERED: *HR* Midazolam HCl 2 MG/2 ML VIAL ONE (12:57)
[2021-08-14] MEDS ORDERED: Furosemide 20 MG TABLET PO PRN (15:46)
[2021-08-14] MEDS ORDERED: Sacubitril/Valsartan 24/26 MG 1 TABLET PO SCH (21:00)
[2021-08-14] MEDS: Apixaban 5 MG TABLET PO SCH (23:00)
[2021-08-15] MEDS: Cefepime HCl 2,000 MG in 0.9 % Sodium Chloride 20 ML IVP SCH ×2 (01:06→07:39)
[2021-08-15] MEDS: Ipratropium/Albuterol Neb 3 ML IH SCH ×3 (04:31→11:16)
[2021-08-15 06:00] LABS: Basophils # 0.1 K/mcL (0.0-0.2); Basophils % 0.9 %; Eosinophils # 0.1 K/mcL (0.0-0.6); Hematocrit 34.4 % (37.5-50.1); Immature Granulocytes % 2.8 % (0-4); Lymphocytes # 1.2 K/mcL (0.6-4.6); Lymphocytes % 10.8 %; Mean Corpuscular Hemoglobin 30.8 pg (28.0-33.3); Mean Corpuscular Volume 96.4 fL (83.0-100.0); Mean Platelet Volume 10.6 fL (9.4-12.4); Monocytes # 1.2 K/mcL (0.0-1.3); Monocytes % 10.5 %; Neutrophils # 8.2 K/mcL (1.6-8.9); Platelet Count 134 K/mcL (140-400); Red Blood Count 3.57 M/mcL (4.19-5.50); Red Cell Distribution Width 15.9 % (11.5-14.5); White Blood Count 11.1 K/mcL (4.3-11.1)
[2021-08-15 06:09] LABS: INR 1.3; Prothrombin Time 14.6 Seconds (9.4-12.1)
[2021-08-15 06:12] LABS: Activated Partial Thrombo Time 29.1 Seconds (26.0-36.0)
[2021-08-15 06:24] LABS: BUN/Creatinine Ratio 29 (6-26); Blood Urea Nitrogen 29 mg/dL (8-23); Calcium 8.7 mg/dL (8.6-10.3); Carbon Dioxide 33 mEq/L (23-29); Chloride 99 mEq/L (98-107); Glucose 108 mg/dL (70-105); Osmolality,Calculated 288 (280-300); Potassium 4.8 mEq/L (3.5-5.1); Sodium 136 mEq/L (136-145); eGFR For African Americans > 60 (> 60); eGFR For Non-African Americans > 60 (> 60)
[2021-08-15 06:43] VITALS: PULSE 69; TEMP 97.8
[2021-08-15] MEDS: Budesonide/Formoterol 160/4.5 1 PUFF INH IH SCH (07:26)
[2021-08-15] MEDS: Insulin LISPRO 300 UNITS/3 ML VIAL SUBQ SCH ×2 (07:28→10:59)
[2021-08-15] MEDS: Finasteride 5 MG TABLET PO SCH (07:36)
[2021-08-15] MEDS: lamoTRIgine 100 MG TABLET PO SCH (07:36)
[2021-08-15] MEDS: QUEtiapine Fumarate 25 MG TABLET PO SCH (07:37)
[2021-08-15] MEDS: Divalproex Sodium 125 MG Sprinkle Capsule (DR) PO SCH (07:38)
[2021-08-15] MEDS: Sacubitril/Valsartan 24/26 MG 1 TABLET PO SCH ×2 (07:38→08:20)
[2021-08-15] MEDS: Apixaban 5 MG TABLET PO SCH (07:38)
[2021-08-15] MEDS: carvediloL 6.25 MG TABLET PO SCH (07:38)
[2021-08-15] MEDS: *HR* Amiodarone 200 MG TABLET PO SCH (07:38)
[2021-08-15] MEDS: Thiamine (B-1) 100 MG TABLET PO SCH (07:38)
[2021-08-15] MEDS: Nicotine 14 MG PATCH.TD24 TD SCH (07:39)
[2021-08-15 09:50] LABS: Bilirubin,Urine Negative (Negative); Blood,Urine Large (Negative); Clarity,Urine Clear (Clear); Color,Urine Colorless (Yellow); Glucose,Urine (UA) Normal (Normal); Ketones,Urine Negative (Negative); Leukocyte Esterase,Urine Negative (Negative); Nitrite,Urine Negative (Negative); PH,Urine 7.5 pH Units (5.0-8.0); Protein,Urine Trace mg/dL (Neg-Trace); RBC,Urine 30-50 per hpf (0-3); Specific Gravity,Urine 1.007 (1.010-1.025); Squamous Epithelial Cell,Urine Few per hpf (None-Few); Urobilinogen,Urine Normal (Normal)
[2021-08-15 10:31] LABS: Adenovirus Not Detected (Not Detect); Bordetella Pertussis Not Detected (Not Detect); Chlamydophila pneumoniae Not Detected (Not Detect); Coronavirus 229E Not Detected (Not Detect); Coronavirus HKU1 Not Detected (Not Detect); Coronavirus NL63 Not Detected (Not Detect); Coronavirus OC43 Not Detected (Not Detect); Human Metapneumovirus Not Detected (Not Detect); Human Rhinovirus/Enterovirus Not Detected (Not Detect); Influenza A Subtype 2009 H1 Not Detected (Not Detect); Influenza B Not Detected (Not Detect); Mycoplasma pneumoniae Not Detected (Not Detect); Parainfluenza Virus 1 Not Detected (Not Detect); Parainfluenza Virus 2 Not Detected (Not Detect); Parainfluenza Virus 3 Not Detected (Not Detect); Parainfluenza Virus 4 Not Detected (Not Detect); Respiratory Syncytial Virus Not Detected (Not Detect); SARS-CoV-2 Not Detected (Not Detect)
[2021-08-15 10:42] VITALS: BP 127/51
[2021-08-15 11:17] VITALS: O2SAT 93
[2021-08-16] MEDS ORDERED: Apixaban 5 MG TABLET PO SCH ×2 (09:00)
== END 2021-08-15 13:26 | DRG 871 ==
LOC: SUATTDRO → EMEROOARM 17:19 → 2ANU 17:19 → 2NNU 22:53 → SUATTDRO 23:00 → ICNU 23:42 → 2NENU 08-09 14:29
PROVIDERS: ADMIT Internal Medicine; ATTEND Family Medicine